=== PATIENT | female | born 1985 | race Caucasian/White ===

== ENCOUNTER 2019-07-01 16:07 | Emergency (ER) | payer SELFPAY ==
[~2019-07-01] VITALS: Ht 157.5 cm; Wt 86.4 kg
[2019-07-01 16:08] VITALS: Ht 157.5 cm; Wt 86.4 kg
[2019-07-01] MEDS ORDERED: GABAPENTIN300 MG PO (16:12)
[2019-07-01] MEDS ORDERED: TRAZODONE HCL150 MG PO (16:12)
[2019-07-01] MEDS ORDERED: XANAX0.5 MG PO (16:12)
[2019-07-01] MEDS ORDERED: LEXAPRO10 MG PO (16:12)
[2019-07-01] MEDS ORDERED: KEFLEX500 MG PO (16:49)
[2019-07-01 17:11] VITALS: BP 148/89
== END 2019-07-01 17:12 | disposition home or self-care (01) ==
LOC: D.ER 16:07
DX: S70.261A Insect bite (nonvenomous), right hip, initial encounter (principal); S50.861A Insect bite (nonvenomous) of right forearm, initial encounter; L03.113 Cellulitis of right upper limb; G62.9 Polyneuropathy, unspecified